=== PATIENT | female | born 1940 | race African-American/Black ===

== ENCOUNTER 2018-04-25 14:04 | Emergency (ER) | payer MEDICARE, MEDICAID ==
[~2018-04-25] VITALS: Ht 175.3 cm; Wt 114.0 kg
[~2018-04-25 14:04] MED LIST: AMLO5TAB88 PO; ATOR40TA70 PO; BENA20TA10 PO; DORZ10DR8 BOTHEYE; ESOM20CA PO; HUM100IN SQ; IBUP-2030 PO; METF-414 PO; VITA400T7 PO
[2018-04-25] MEDS ORDERED: ALBUTEROL (0.083%) 2.5MG/3ML NEB HHN STA (14:41)
[2018-04-25 16:11] LABS: CHLORIDE 101 mEq/L (98-107)
[2018-04-25 16:12] LABS: BASOPHILS % 0.2 % (0.0-2.0); EOSINOPHILS % 1.8 % (0.0-5.0); HEMATOCRIT. 32.7 % (36.0-48.0); HEMOGLOBIN. 10.9 g/dL (12.0-16.0); LYMPHOCYTES % 25.3 % (20.0-50.0); MEAN CORPUSCULAR HEMOGLOBIN 32.5 pg (28.0-32.0); MEAN PLATELET VOLUME 8.6 fl (7.4-10.4); MONOCYTES % 9.7 % (2.0-8.0); PLATELET 168 x1000/uL (130-400); RED BLOOD CELL COUNT 3.37 mill/uL (4.2-5.4); RED CELL DISTRIBUTION WIDTH 12.8 % (11.6-14.6)
[2018-04-25 18:57] VITALS: BP 145/69
== END 2018-04-25 19:16 | disposition home or self-care (01) ==
LOC: ER 14:04
DX: J44.1 Chronic obstructive pulmonary disease with (acute) exacerbation (principal); E11.65 Type 2 diabetes mellitus with hyperglycemia; Z79.84 Long term (current) use of oral hypoglycemic drugs; Z79.899 Other long term (current) drug therapy; Z88.0 Allergy status to penicillin; Z91.013 Allergy to seafood
CPT/HCPCS: 36415; 71045; 80053; 83880; 84484; 85025; 87804; 93005; 94640; 99284; J7611

== ENCOUNTER 2018-07-25 19:43 | Inpatient (IN) | payer MEDICARE, MEDICAID ==
[~2018-07-25] VITALS: Ht 170.2 cm; Wt 73.1 kg
[2018-07-25] MEDS ORDERED: ASPIRIN 81MG TABLET PO ONE (22:45)
[2018-07-25 23:15] LABS: BASOPHILS % 0.4 % (0.0-2.0); EOSINOPHILS % 3.2 % (0.0-5.0); HEMATOCRIT. 36.9 % (36.0-48.0); HEMOGLOBIN. 12.4 g/dL (12.0-16.0); LYMPHOCYTES % 38.7 % (20.0-50.0); MEAN CORPUSCULAR HEMOGLOBIN 32.3 pg (28.0-32.0); MEAN CORPUSCULAR VOLUME 96.2 fL (81.0-99.0); MEAN PLATELET VOLUME 8.4 fl (7.4-10.4); MONOCYTES % 6.9 % (2.0-8.0); NEUTROPHILS % 50.8 % (40.0-76.0); PLATELET 184 x1000/uL (130-400); RED BLOOD CELL COUNT 3.84 mill/uL (4.2-5.4)
[2018-07-25 23:20] LABS: CHLORIDE 102 mEq/L (98-107)
[2018-07-26] VITALS (7 sets, daily range): BP systolic 139–163; BP diastolic 57–82
[2018-07-26] MEDS ORDERED: ALBUTEROL (0.083%) 2.5MG/3ML NEB HHN ONE (00:15)
[2018-07-26] MEDS ORDERED: METHYLPREDNISOLONE SOD SUCC 125 MG/2 ML VIAL IV ONE (00:15)
[2018-07-26] MEDS ORDERED: ONDANSETRON HCL 4MG/2ML INJ IV PRN (01:30)
[2018-07-26] MEDS ORDERED: GUAIFENESIN 200MG/10ML SUGAR FREE UDC PO PRN (01:30)
[2018-07-26] MEDS ORDERED: ACETAMINOPHEN 325MG TABLET PO PRN (01:30)
[2018-07-26] MEDS ORDERED: DIPHENHYDRAMINE 50MG/ML VIAL IV PRN (01:30)
[2018-07-26] MEDS ORDERED: DEXTROSE 50% WATER 50ML SYRINGE IV PRN (01:30)
[2018-07-26] MEDS ORDERED: CLONIDINE 0.1MG TABLET PO PRN (01:30)
[2018-07-26] MEDS ORDERED: IPRATROPIUM/ALBUTEROL 0.5-3(2.5)MG/3ML NEB INH PRN (01:30)
[2018-07-26] MEDS ORDERED: MAGNESIUM/ALUMINUM HYDROXIDE/SIMETHICONE 30ML UDC PO PRN ×3 (01:30→19:45)
[2018-07-26 02:07] LABS: CLARITY URINE CLEAR (CLEAR); COLOR URINE YELLOW (YELLOW); KETONES URINE NEGATIVE (NEGATIVE); LEUKOCYTE ESTERASE URINE NEGATIVE (NEGATIVE); NITRITE URINE NEGATIVE (NEGATIVE); OCCULT BLOOD URINE NEGATIVE (NEGATIVE); PROTEIN URINE NEGATIVE (NEGATIVE); SPECIFIC GRAVITY URINE 1.019 (1.005-1.030)
[2018-07-26] MEDS: SODIUM CHLORIDE 0.9% INJ 3ML FLUSH IVF SCH ×3 (05:49→22:00)
[2018-07-26] MEDS: BLOOD SUGAR DIAGNOSTIC STRIP TEST SCH ×4 (06:31→21:00)
[2018-07-26] MEDS: INSULIN LISPRO 100 UNITS/ML SUBCUT SCH ×4 (06:40→22:40)
[2018-07-26] MEDS ORDERED: PANTOPRAZOLE SODIUM 40 MG/VIAL IV SCH (09:00)
[2018-07-26] MEDS ORDERED: INSULIN GLARGINE UD 100 UNITS/ML SYR SUBCUT SCH (10:00)
[2018-07-26] MEDS: METFORMIN HCL 500MG TABLET PO SCH ×2 (10:18→18:23)
[2018-07-26] MEDS: AMLODIPINE 5MG TABLET PO SCH (10:19)
[2018-07-26] MEDS: BENAZEPRIL 10MG TABLET PO SCH (10:20)
[2018-07-26] MEDS: ASPIRIN 81MG EC TABLET PO SCH (10:20)
[2018-07-26] MEDS: ENOXAPARIN 30MG/0.3ML SYR SUBCUT SCH ×2 (10:22→22:41)
[2018-07-26] MEDS: PANTOPRAZOLE SODIUM 40 MG/VIAL IV SCH (21:00)
[2018-07-27 03:57] VITALS: BP 137/63
[2018-07-27] MEDS: SODIUM CHLORIDE 0.9% INJ 3ML FLUSH IVF SCH (06:00)
[2018-07-27] MEDS: BLOOD SUGAR DIAGNOSTIC STRIP TEST SCH ×2 (07:07→12:20)
[2018-07-27 07:11] LABS: BASOPHILS % 0.2 % (0.0-2.0); EOSINOPHILS % 0.9 % (0.0-5.0); HEMATOCRIT. 33.2 % (36.0-48.0); HEMOGLOBIN. 11.3 g/dL (12.0-16.0); LYMPHOCYTES % 24.7 % (20.0-50.0); MEAN CORPUSCULAR HEMOGLOBIN 32.6 pg (28.0-32.0); MEAN CORPUSCULAR VOLUME 95.5 fL (81.0-99.0); MEAN PLATELET VOLUME 8.7 fl (7.4-10.4); MONOCYTES % 6.8 % (2.0-8.0); NEUTROPHILS % 67.4 % (40.0-76.0); PLATELET 164 x1000/uL (130-400); RED BLOOD CELL COUNT 3.47 mill/uL (4.2-5.4)
[2018-07-27 07:42] LABS: CHLORIDE 102 mEq/L (98-107)
[2018-07-27 08:00] VITALS: BP 134/64
[2018-07-27] MEDS ORDERED: INSULIN GLARGINE UD 100 UNITS/ML SYR SUBCUT SCH (10:00)
[2018-07-27] MEDS: AMLODIPINE 5MG TABLET PO SCH (10:19)
[2018-07-27] MEDS: METFORMIN HCL 500MG TABLET PO SCH (10:19)
[2018-07-27] MEDS: BENAZEPRIL 10MG TABLET PO SCH (10:19)
[2018-07-27] MEDS: ENOXAPARIN 30MG/0.3ML SYR SUBCUT SCH (10:20)
[2018-07-27] MEDS: INSULIN LISPRO 100 UNITS/ML SUBCUT SCH ×2 (10:21→13:20)
[2018-07-27] MEDS: ASPIRIN 81MG EC TABLET PO SCH (11:50)
[2018-07-27] MEDS: PANTOPRAZOLE SODIUM 40 MG/VIAL IV SCH (11:51)
[2018-07-27 13:00] VITALS: BP 134/54
[2018-07-27 17:02] VITALS: BP 134/54
[2018-07-28] MEDS ORDERED: ENOXAPARIN 40MG/0.4ML SYR SUBCUT SCH (09:00)
== END 2018-07-27 17:40 | disposition home or self-care (01) | DRG 203 ==
LOC: ER 19:43 → 6WST 07-26 01:15 → EDBEDREQDT 07-26 01:17 → EDBEDREQ 07-26 01:17 → EDBEDREQTM 07-26 01:17 → ENRESERV 07-26 01:42
PROVIDERS: ADMIT Internal Medicine; ATTEND Internal Medicine
DX: R07.89 Other chest pain (principal); K31.84 Gastroparesis; E11.43 Type 2 diabetes mellitus with diabetic autonomic (poly)neuropathy; I11.9 Hypertensive heart disease without heart failure; E66.09 Other obesity due to excess calories; I45.10 Unspecified right bundle-branch block; K21.9 Gastro-esophageal reflux disease without esophagitis; Z79.4 Long term (current) use of insulin; Z88.0 Allergy status to penicillin; Z91.013 Allergy to seafood; Z68.25 Body mass index [BMI] 25.0-25.9, adult; Z79.84 Long term (current) use of oral hypoglycemic drugs; Z79.899 Other long term (current) drug therapy
CPT/HCPCS: 36415; 71045; 80048; 82962; 83880; 84484; 93005; 93306; 93970; 96372; 96374; 99291; C9113; J1650; J1815; J2930

== ENCOUNTER 2019-02-07 19:17 | Emergency (ER) | payer MEDICARE, MEDICAID ==
[~2019-02-07] VITALS: Ht 172.7 cm; Wt 114.0 kg
[~2019-02-07 19:17] MED LIST changes: +CHOL400C8 PO; +DOCU-150 PO
[2019-02-07] MEDS ORDERED: ASPIRIN 81MG TABLET PO ONE (22:45)
[2019-02-07 22:47] LABS: BASOPHILS % 0.7 % (0.0-2.0); EOSINOPHILS % 2.5 % (0.0-5.0); HEMATOCRIT. 39.3 % (36.0-48.0); HEMOGLOBIN. 13.2 g/dL (12.0-16.0); LYMPHOCYTES % 39.3 % (20.0-50.0); MEAN CORPUSCULAR HEMOGLOBIN 32.2 pg (28.0-32.0); MEAN CORPUSCULAR VOLUME 95.5 fL (81.0-99.0); MEAN PLATELET VOLUME 8.3 fl (7.4-10.4); MONOCYTES % 7.6 % (2.0-8.0); NEUTROPHILS % 49.9 % (40.0-76.0); PLATELET 165 x1000/uL (130-400); RED BLOOD CELL COUNT 4.11 mill/uL (4.2-5.4); RED CELL DISTRIBUTION WIDTH 13.2 % (11.6-14.6)
[2019-02-07 22:54] LABS: CHLORIDE 105 mEq/L (98-107)
[2019-02-08] MEDS ORDERED: IBUPROFEN 600MG TABLET PO ONE
[2019-02-08] MEDS ORDERED: HYDROCODONE/ACETAMINOPHEN 5/325MG TABLET PO ONE
[2019-02-08] MEDS ORDERED: KETOROLAC 15MG/ML VIAL IV NR (01:15)
[2019-02-08 01:51] VITALS: BP 149/70
== END 2019-02-08 01:52 | disposition home or self-care (01) ==
LOC: ER 19:17
DX: J20.9 Acute bronchitis, unspecified (principal); R07.89 Other chest pain; E66.01 Morbid (severe) obesity due to excess calories; E11.9 Type 2 diabetes mellitus without complications; I10 Essential (primary) hypertension; Z79.899 Other long term (current) drug therapy; Z88.0 Allergy status to penicillin; Z91.013 Allergy to seafood
CPT/HCPCS: 36415; 71045; 80053; 82962; 83880; 84484; 85025; 93005; 96374; 99284; J1885

== ENCOUNTER 2019-05-14 11:17 | Inpatient (IN) | payer MEDICARE, MEDICAID ==
[2019-05-14] VITALS: BP 143/53
[~2019-05-14] VITALS: Ht 175.3 cm; Wt 112.9 kg
[2019-05-14] MEDS ORDERED: ACETAMINOPHEN 500MG TABLET PO ONE (13:00)
[2019-05-14] MEDS ORDERED: ASPIRIN 81MG TABLET PO ONE (13:00)
[2019-05-14 13:03] LABS: BASOPHILS % 0.4 % (0.0-2.0); EOSINOPHILS % 3.7 % (0.0-5.0); HEMATOCRIT. 35.2 % (36.0-48.0); HEMOGLOBIN. 11.9 g/dL (12.0-16.0); LYMPHOCYTES % 29.2 % (20.0-50.0); MEAN CORPUSCULAR HEMOGLOBIN 32.5 pg (28.0-32.0); MEAN CORPUSCULAR VOLUME 96.5 fL (81.0-99.0); MEAN PLATELET VOLUME 8.6 fl (7.4-10.4); MONOCYTES % 5.9 % (2.0-8.0); NEUTROPHILS % 60.8 % (40.0-76.0); PLATELET 182 x1000/uL (130-400); RED BLOOD CELL COUNT 3.65 mill/uL (4.2-5.4); RED CELL DISTRIBUTION WIDTH 12.7 % (11.6-14.6)
[2019-05-14 13:08] LABS: CHLORIDE 103 mEq/L (98-107)
[2019-05-14 13:10] LABS: INR 1.2; PARTIAL THROMBOPLASTIN TIME 25.9 sec (23.4-31.0); PROTHROMBIN TIME 12.1 sec (9.6-11.0)
[2019-05-14] MEDS: SODIUM CHLORIDE 0.9% 1,000 ML IV SCH (18:23)
[2019-05-14] MEDS ORDERED: DORZOLAMIDE 2% OPHTH 10 ML BOTTLE BOTHEYE SCH (18:30)
[2019-05-14] MEDS ORDERED: CLONIDINE 0.1MG TABLET PO PRN (18:30)
[2019-05-14] MEDS ORDERED: DEXTROSE 50% WATER 50ML SYRINGE IV PRN (18:30)
[2019-05-14] MEDS ORDERED: ONDANSETRON HCL 4MG/2ML INJ IV PRN (18:30)
[2019-05-14] MEDS ORDERED: DIPHENHYDRAMINE 50MG/ML VIAL IV PRN (18:30)
[2019-05-14] MEDS ORDERED: TEMAZEPAM 15MG CAPSULE PO PRN (18:30)
[2019-05-14] MEDS ORDERED: HYDROMORPHONE HCL/PF 2MG/ML CPJ IV PRN (18:30)
[2019-05-14] MEDS ORDERED: MAGNESIUM/ALUMINUM HYDROXIDE/SIMETHICONE 30ML UDC PO PRN (18:30)
[2019-05-14] MEDS: INSULIN LISPRO 100 UNITS/ML SUBCUT SCH (21:00)
[2019-05-14 21:12] VITALS: BP 167/65
[2019-05-14] MEDS: BLOOD SUGAR DIAGNOSTIC STRIP TEST SCH (21:49)
[2019-05-14] MEDS: ATORVASTATIN CALCIUM 40MG TABLET PO SCH (21:51)
[2019-05-14] MEDS: AMLODIPINE 5MG TABLET PO SCH (21:52)
[2019-05-15] MEDS: ACETAMINOPHEN 325MG TABLET PO PRN (00:20)
[2019-05-15 04:00] VITALS: BP 131/67
[2019-05-15] MEDS: BLOOD SUGAR DIAGNOSTIC STRIP TEST SCH ×4 (05:40→21:49)
[2019-05-15] MEDS: INSULIN LISPRO 100 UNITS/ML SUBCUT SCH ×4 (05:40→21:51)
[2019-05-15 07:01] LABS: BASOPHILS % 0.4 % (0.0-2.0); HEMATOCRIT. 31.4 % (36.0-48.0); HEMOGLOBIN. 10.8 g/dL (12.0-16.0); LYMPHOCYTES % 42.1 % (20.0-50.0); MEAN CORPUSCULAR HEMOGLOBIN 32.5 pg (28.0-32.0); MEAN CORPUSCULAR VOLUME 95.1 fL (81.0-99.0); MEAN PLATELET VOLUME 8.7 fl (7.4-10.4); MONOCYTES % 9.9 % (2.0-8.0); NEUTROPHILS % 43.6 % (40.0-76.0); PLATELET 169 x1000/uL (130-400); RED BLOOD CELL COUNT 3.31 mill/uL (4.2-5.4); RED CELL DISTRIBUTION WIDTH 12.6 % (11.6-14.6)
[2019-05-15 08:00] VITALS: BP 136/67
[2019-05-15 08:39] LABS: CHLORIDE 107 mEq/L (98-107)
[2019-05-15] MEDS: AMLODIPINE 5MG TABLET PO SCH ×2 (08:45→21:48)
[2019-05-15] MEDS: BENAZEPRIL 10MG TABLET PO SCH (08:45)
[2019-05-15] MEDS: PANTOPRAZOLE SODIUM 40 MG/VIAL IV SCH (08:45)
[2019-05-15] MEDS: DORZOLAMIDE 2% OPHTH 10 ML BOTTLE BOTHEYE SCH ×3 (08:46→21:47)
[2019-05-15] MEDS: ASPIRIN 81MG EC TABLET PO SCH (08:46)
[2019-05-15 09:29] LABS: FOLIC ACID (FOLATE) SERUM 13.1 ng/mL (>5.38)
[2019-05-15 12:00] VITALS: BP 150/83
[2019-05-15] MEDS: KETOROLAC 30MG/ML VIAL IV PRN ×2 (12:22→23:15)
[2019-05-15] MEDS: HYDRALAZINE HCL 50MG TABLET PO SCH ×2 (14:21→21:47)
[2019-05-15] MEDS ORDERED: SIMETHICONE 80MG TABLET CHEW PO PRN (15:30)
[2019-05-15 16:00] VITALS: BP 136/60
[2019-05-15 20:00] VITALS: BP_SYST 136; BP_SYST 139; BP_DIAS 63; BP_DIAS 70
[2019-05-15] MEDS: ATORVASTATIN CALCIUM 40MG TABLET PO SCH (21:47)
[2019-05-15] MEDS: SODIUM CHLORIDE 0.9% 1,000 ML IV SCH ×2 (21:50)
[2019-05-16] VITALS: BP 121/56
[2019-05-16 04:00] VITALS: BP 122/64
[2019-05-16] MEDS: BLOOD SUGAR DIAGNOSTIC STRIP TEST SCH ×4 (06:13→21:54)
[2019-05-16] MEDS: HYDRALAZINE HCL 50MG TABLET PO SCH ×3 (06:51→21:58)
[2019-05-16 06:54] LABS: BASOPHILS % 0.3 % (0.0-2.0); EOSINOPHILS % 3.8 % (0.0-5.0); HEMATOCRIT. 31.6 % (36.0-48.0); HEMOGLOBIN. 10.8 g/dL (12.0-16.0); LYMPHOCYTES % 38.7 % (20.0-50.0); MEAN CORPUSCULAR HEMOGLOBIN 32.8 pg (28.0-32.0); MEAN PLATELET VOLUME 8.4 fl (7.4-10.4); MONOCYTES % 10.2 % (2.0-8.0); PLATELET 162 x1000/uL (130-400); RED BLOOD CELL COUNT 3.29 mill/uL (4.2-5.4); RED CELL DISTRIBUTION WIDTH 12.9 % (11.6-14.6)
[2019-05-16] MEDS: INSULIN LISPRO 100 UNITS/ML SUBCUT SCH ×4 (06:54→23:08)
[2019-05-16 08:00] VITALS: BP 133/73
[2019-05-16 08:31] LABS: CHLORIDE 107 mEq/L (98-107)
[2019-05-16] MEDS: DORZOLAMIDE 2% OPHTH 10 ML BOTTLE BOTHEYE SCH ×2 (08:39→21:57)
[2019-05-16] MEDS: ASPIRIN 81MG EC TABLET PO SCH (08:39)
[2019-05-16] MEDS: PANTOPRAZOLE SODIUM 40 MG/VIAL IV SCH (08:39)
[2019-05-16] MEDS: BENAZEPRIL 10MG TABLET PO SCH (08:40)
[2019-05-16] MEDS: AMLODIPINE 5MG TABLET PO SCH ×2 (08:40→21:57)
[2019-05-16] MEDS ORDERED: DIATR MEGLU/DIATRIZOATE SOLN 30ML PO SCH (10:00)
[2019-05-16] MEDS: SODIUM CHLORIDE 0.9% 1,000 ML IV SCH (11:36)
[2019-05-16 12:00] VITALS: BP 131/99
[2019-05-16] MEDS ORDERED: IOHEXOL-300 100 ML BOTTLE ONE (15:07)
[2019-05-16 16:00] VITALS: BP 128/64
[2019-05-16] MEDS ORDERED: ENOXAPARIN 40MG/0.4ML SYR SUBCUT SCH (17:00)
[2019-05-16 20:00] VITALS: BP 126/69
[2019-05-16] MEDS: ATORVASTATIN CALCIUM 40MG TABLET PO SCH (21:56)
[2019-05-16] MEDS: KETOROLAC 30MG/ML VIAL IV PRN (22:27)
[2019-05-17] VITALS: BP 147/66
[2019-05-17 04:00] VITALS: BP 126/49
[2019-05-17] MEDS: HYDRALAZINE HCL 50MG TABLET PO SCH ×2 (05:17→13:07)
[2019-05-17] MEDS: BLOOD SUGAR DIAGNOSTIC STRIP TEST SCH ×2 (06:10→11:56)
[2019-05-17] MEDS: INSULIN LISPRO 100 UNITS/ML SUBCUT SCH ×2 (06:26→13:17)
[2019-05-17 08:00] VITALS: BP 129/65
[2019-05-17] MEDS: AMLODIPINE 5MG TABLET PO SCH (08:59)
[2019-05-17] MEDS: DORZOLAMIDE 2% OPHTH 10 ML BOTTLE BOTHEYE SCH (08:59)
[2019-05-17] MEDS: PANTOPRAZOLE SODIUM 40 MG/VIAL IV SCH (08:59)
[2019-05-17] MEDS: ASPIRIN 81MG EC TABLET PO SCH (08:59)
[2019-05-17] MEDS: BENAZEPRIL 10MG TABLET PO SCH (08:59)
[2019-05-17] MEDS: ACETAMINOPHEN 325MG TABLET PO PRN (09:00)
[2019-05-17] MEDS ORDERED: SIMETHICONE 80MG TABLET CHEW PO SCH (10:30)
[2019-05-17 11:03] VITALS: BP 129/65
[2019-05-17] MEDS: KETOROLAC 30MG/ML VIAL IV PRN (11:49)
[2019-05-17 12:00] VITALS: BP 132/67
[2019-05-21 09:06] LABS: SACCHAROMYCES CEREVISIAE IGG <20.0 Units (0.0-24.9); SACCHAROMYCES CEREVISIAE IGM <20.0 Units (0.0-24.9)
== END 2019-05-17 15:06 | disposition home or self-care (01) | DRG 442 ==
LOC: ER 11:17 → 5WST 14:28 → EDBEDREQ 14:31 → ENRESERV 19:47
PROVIDERS: ADMIT Internal Medicine; ATTEND Internal Medicine
DX: D13.5 Benign neoplasm of extrahepatic bile ducts (principal); K50.90 Crohn's disease, unspecified, without complications; K42.0 Umbilical hernia with obstruction, without gangrene; M94.0 Chondrocostal junction syndrome [Tietze]; D64.9 Anemia, unspecified; E11.43 Type 2 diabetes mellitus with diabetic autonomic (poly)neuropathy; E66.01 Morbid (severe) obesity due to excess calories; E78.5 Hyperlipidemia, unspecified; I11.9 Hypertensive heart disease without heart failure; I25.10 Atherosclerotic heart disease of native coronary artery without angina pectoris; E78.00 Pure hypercholesterolemia, unspecified; K82.8 Other specified diseases of gallbladder; K21.9 Gastro-esophageal reflux disease without esophagitis; K31.84 Gastroparesis; K57.90 Diverticulosis of intestine, part unspecified, without perforation or abscess without bleeding; I70.0 Atherosclerosis of aorta; I35.8 Other nonrheumatic aortic valve disorders; I45.10 Unspecified right bundle-branch block; Z79.84 Long term (current) use of oral hypoglycemic drugs; Z68.36 Body mass index [BMI] 36.0-36.9, adult; Z79.4 Long term (current) use of insulin; Z95.5 Presence of coronary angioplasty implant and graft; Z82.49 Family history of ischemic heart disease and other diseases of the circulatory system; Z82.3 Family history of stroke; Z79.899 Other long term (current) drug therapy; Z79.82 Long term (current) use of aspirin; Z88.0 Allergy status to penicillin; Z91.013 Allergy to seafood
CPT/HCPCS: 36415; 71045; 74177; 76705; 80048; 80053; 82607; 82746; 82962; 83880; 84484; 85025; 85651; 86140; 86256; 86671; 93005; 93306; 93970; 99285; C9113; J1650; J1815; J1885; Q9963; Q9967

== ENCOUNTER 2020-07-16 10:34 | Emergency (ER) | payer MEDICARE, MEDICAID ==
[~2020-07-16] VITALS: Ht 172.7 cm; Wt 113.0 kg
[2020-07-16] MEDS ORDERED: KETOROLAC 30MG/ML VIAL IV STA (11:09)
[2020-07-16] MEDS ORDERED: ONDANSETRON HCL 4MG/2ML INJ IV STA (11:09)
[2020-07-16] MEDS ORDERED: SODIUM CHLORIDE 0.9% 1,000 ML IV ONE (11:15)
[2020-07-16 12:19] LABS: BASOPHILS % 0.3 % (0.0-2.0); EOSINOPHILS % 2.9 % (0.0-5.0); HEMATOCRIT. 34.5 % (36.0-48.0); HEMOGLOBIN. 11.4 g/dL (12.0-16.0); LYMPHOCYTES % 24.1 % (20.0-50.0); MEAN CORPUSCULAR HEMOGLOBIN 32.3 pg (28.0-32.0); MEAN CORPUSCULAR VOLUME 97.6 fL (81.0-99.0); MEAN PLATELET VOLUME 8.2 fl (7.4-10.4); MONOCYTES % 7.1 % (2.0-8.0); NEUTROPHILS % 65.6 % (40.0-76.0); PLATELET 162 x1000/uL (130-400); RED BLOOD CELL COUNT 3.54 mill/uL (4.2-5.4); RED CELL DISTRIBUTION WIDTH 13.2 % (11.6-14.6)
[2020-07-16 12:25] LABS: CHLORIDE 107 mEq/L (98-107)
[2020-07-16 12:27] LABS: INR 1.2; PROTHROMBIN TIME 12.9 sec (9.6-11.0)
[2020-07-16] MEDS ORDERED: OMEP40CA12 MT (13:48)
[2020-07-16 14:48] VITALS: BP 138/70
== END 2020-07-16 15:12 | disposition home or self-care (01) ==
LOC: ER 10:34
DX: R10.32 Left lower quadrant pain (principal); E11.9 Type 2 diabetes mellitus without complications; I10 Essential (primary) hypertension; Z79.4 Long term (current) use of insulin; Z88.0 Allergy status to penicillin; Z91.013 Allergy to seafood
CPT/HCPCS: 36415; 74176; 80053; 83690; 85025; 85610; 93005; 96374; 96375; 99285; J1885; J2405; J7030